=== PATIENT | female | born 1995 | race Caucasian/White ===

== ENCOUNTER 2024-03-07 17:38 | Emergency (ER) | payer MEDICAID ==
[2024-03-07] MEDS ORDERED: Ketorolac Tromethamine 30 MG (1 mL) VIAL ONE (18:31)
== END 2024-03-07 19:10 | disposition home or self-care (01) ==
LOC: CSHERS 17:38
DX: G89.29 Other chronic pain (principal); M54.50 Low back pain, unspecified; F17.290 Nicotine dependence, other tobacco product, uncomplicated; E11.9 Type 2 diabetes mellitus without complications
CPT/HCPCS: 96372; 99283; J1885

== ENCOUNTER 2024-06-09 21:30 | Emergency (ER) | payer OTHER ==
[2024-06-10] MEDS ORDERED: Ipratropium Bromide 2.5 ml Neb ONE (00:42)
[2024-06-10] MEDS ORDERED: Albuterol 2.5 MG (0.5 mL) NEB ONE (00:43)
[2024-06-10] MEDS ORDERED: predniSONE 20 MG TAB ONE (01:23)
== END 2024-06-10 01:32 | disposition home or self-care (01) ==
LOC: CSHERS 21:30
DX: J45.901 Unspecified asthma with (acute) exacerbation (principal); Z87.891 Personal history of nicotine dependence
CPT/HCPCS: 71045; 93005; 94640; J7512; J7611; J7644

== ENCOUNTER 2024-08-14 19:41 | Emergency (ER) | payer OTHER | END 2024-08-14 20:25 | disposition home or self-care (01) | LOC: CSHERS 19:41 | DX: J98.8 Other specified respiratory disorders (principal); B97.89 Other viral agents as the cause of diseases classified elsewhere | CPT/HCPCS: 99283 ==

== ENCOUNTER 2025-07-04 07:49 | Emergency (ER) | payer MEDICAID ==
[2025-07-04] MEDS ORDERED: Ondansetron PF 4 MG/2 ML Vial ONE (08:53)
[2025-07-04] MEDS ORDERED: Lidocaine Viscous Sol 2% 15 ml UD Cup ONE (08:54)
[2025-07-04] MEDS ORDERED: Milk Of Magnesia 30 ML UDCUP ONE (08:54)
[2025-07-04 09:11] LABS: #Basophils 0.05 10x3/uL (0.0-0.2); #Eosinophils 0.19 10x3/uL (0.0-0.5); #Monocytes 0.40 10x3/uL (0.0-1.1); #Neutrophils 2.71 10x3/uL (1.5-8.4); %Basophils 0.7 % (0.0-2.0); %Eosinophils 2.6 % (0.0-6.0); %Lymphocytes 53.3 % (18.0-47.0); %Monocytes 5.5 % (0.0-10.0); %Neutrophils 37.6 % (40.0-75.0); Hematocrit 39.0 % (34.9-44.5); Hemoglobin 12.6 g/dL (12.0-15.5); Mean Corpuscular Hemoglobin 26.9 pg (27.0-33.0); Mean Corpuscular Volume 83.3 fL (81.6-98.3); Platelet Count 301 10x3/uL (150-450); Red Blood Cell (RBC) Count 4.68 10x6/uL (3.90-5.03); White Blood Cell (WBC) Count 7.21 10x3/uL (3.5-10.5)
[2025-07-04 09:26] LABS: BHCG - Serum Negative (NEGATIVE); Pregs Control Background? CLEAR/WHITE (CLR/WHITE); Pregs Control Bar Appear? YES (CONTROL BAR)
[2025-07-04 09:30] LABS: ALT (SGPT) 29 U/L (Less than 34); AST (SGOT) 30 U/L (11-34); Albumin 3.8 g/dL (3.1-4.5); Alkaline Phosphatase 88 U/L (40-110); Anion Gap 12 mmol/L (10-20); BUN (Urea Nitrogen) 7 mg/dL (7.0-18.7); Bilirubin, Total 0.2 mg/dL (0.3-1.2); Calc. Creatinine Clearance 0 mL/min (70-130); Calcium 8.9 mg/dL (7.8-10.44); Carbon Dioxide 25 mmol/L (22-29); Chloride 106 mmol/L (98-107); Globulin 3.2 g/dL (2.4-3.5); Glucose 96 mg/dL (70-105); Lipase 34 U/L (8-78); Magnesium 1.9 mg/dL (1.6-2.6); Potassium 3.6 mmol/L (3.5-5.1); Sodium 139 mmol/L (136-145)
[2025-07-04 10:49] LABS: Glucose, Urine (Dipstick) Normal (Negative); Leukocyte 100 (Negative); Protein, Urine (Dipstick) Negative (Neg-Trace); Specific Gravity, Urine 1.025 (1.005-1.030)
[2025-07-04 10:57] LABS: Cocaine Metabolite Screen Negative (Negative); THC/Cannabinoid Screen Negative (Negative); Tricyclic Screen Negative (Negative)
[2025-07-04 11:13] LABS: Bacteria/HPF 2+ HPF (None Seen); CAUTI Indications for Culture Dysuria,urgency,freq; RBC/HPF 0-3 HPF (0-3)
[2025-07-04 11:14] LABS: Urine Culture Reflex Yes Yes
== END 2025-07-04 14:43 | disposition home or self-care (01) ==
LOC: CSHERS 07:49
DX: N39.0 Urinary tract infection, site not specified (principal); R11.2 Nausea with vomiting, unspecified; R55 Syncope and collapse; R10.9 Unspecified abdominal pain; F90.9 Attention-deficit hyperactivity disorder, unspecified type; R73.03 Prediabetes; Z75.3 Unavailability and inaccessibility of health-care facilities; Z87.891 Personal history of nicotine dependence; Z79.84 Long term (current) use of oral hypoglycemic drugs; Z79.899 Other long term (current) drug therapy
CPT/HCPCS: 74181; 76376; 76705; 80053; 80306; 81001; 83690; 83735; 84703; 85025; 87086; 93005; 96374; J2405; S8037

== ENCOUNTER 2025-09-14 01:37 | Emergency (ER) | payer MEDICAID ==
[2025-09-14] MEDS ORDERED: Ketorolac Tromethamine 30 MG (1 mL) VIAL ONE (03:31)
[2025-09-14 03:45] LABS: Glucose, Urine (Dipstick) Normal (Negative); Leukocyte Negative (Negative); Protein, Urine (Dipstick) Negative (Neg-Trace); Specific Gravity, Urine 1.015 (1.005-1.030)
[2025-09-14 03:58] LABS: Pregnancy Test - Urine (BHCG) Negative (Negative); Pregu Control Background? CLEAR/WHITE (CLR/WHITE); Pregu Control Bar Appear? YES (CONTROL BAR)
[2025-09-14 05:05] LABS: Bacteria/HPF 1+ HPF (None Seen); CAUTI Indications for Culture Pelvic or flank pain; RBC/HPF 0-3 HPF (0-3); WBC/HPF 0-3 HPF (0-3)
[2025-09-14 05:06] LABS: Urine Culture Reflex No No
== END 2025-09-14 05:08 | disposition home or self-care (01) ==
LOC: CSHERS 01:37
DX: G89.29 Other chronic pain (principal); M54.50 Low back pain, unspecified; Z75.3 Unavailability and inaccessibility of health-care facilities; Z87.891 Personal history of nicotine dependence
CPT/HCPCS: 81001; 81025; 96372; 99283; J1885